=== PATIENT | male | born 1955 | race Caucasian/White ===

== ENCOUNTER 2022-05-02 10:31 | Inpatient (IN) | payer MEDICARE, OTHER ==
[~2022-05-02] VITALS: Ht 182.9 cm; Wt 81.0 kg
[2022-05-02 10:53] LABS: BASOPHILS ABSOLUTE AUTO 0.07 K/mm3 (0.00-0.23); BASOPHILS PERCENT AUTO 1 % (0-2); EOSINOPHILS ABSOLUTE AUTO 0.06 K/mm3 (0.00-0.68); EOSINOPHILS PERCENT AUTO 1 % (0-6); Hematocrit 46.2 % (37.0-53.0); Hemoglobin 15.8 g/dL (13.5-17.5); IMMATURE GRAN ABSOLUTE AUTO 0.04 K/mm3 (0.00-0.10); IMMATURE GRAN PERCENT AUTO 0 % (0-1); LYMPHOCYTES ABSOLUTE AUTO 1.74 K/mm3 (0.84-5.20); LYMPHOCYTES PERCENT AUTO 16 % (21-46); MONOCYTES ABSOLUTE AUTO 0.97 K/mm3 (0.16-1.47); MONOCYTES PERCENT AUTO 9 % (4-13); Mean Corpuscular HGB 29.7 pg (26.0-34.0); Mean Corpuscular HGB Conc 34.2 g/dL (31.5-36.5); Mean Corpuscular Volume 87 fL (80-100); Mean Platelet Volume 9.7 fL (9.1-12.4); NEUTROPHILS ABSOLUTE AUTO 8.19 K/mm3 (1.96-9.15); NEUTROPHILS PERCENT AUTO 74 % (41-73); Platelet Count 185 K/mm3 (150-400); RDW Coefficient Variation 14.2 % (11.7-14.2); RDW Standard Deviation 45.2 fL (35.1-46.3); Red Blood Cell Count 5.32 M/mm3 (4.30-5.90); White Blood Cell Count 11.07 K/mm3 (4.00-11.30)
[2022-05-02] MEDS ORDERED: WARF5 PO (11:10)
[2022-05-02] MEDS ORDERED: ASPI81CH PO (11:10)
[2022-05-02 11:25] LABS: Albumin, Blood 3.4 g/dL (3.4-5.0); Albumin/Globulin Ratio 0.9 (0.8-1.8); Bilirubin, Total 0.9 mg/dL (0.1-1.0); Bun/Creatinine Ratio 15.8 (12.0-20.0); Calcium, Blood 8.5 mg/dL (8.5-10.1); Creatinine, Blood 1.01 mg/dL (0.60-1.20); Globulin, Blood 3.7 g/dL (2.2-4.0); Potassium, Blood 4.7 mmol/L (3.5-5.5); Total Protein, Blood 7.1 g/dL (6.4-8.2)
[2022-05-02 13:45] LABS: International Normalized Ratio 1.62; Prothrombin Time Results 16.5 Sec (9.7-11.5)
[2022-05-02] MEDS ORDERED: ONDA4ODT MM (14:35)
[2022-05-02 18:49] LABS: CHOL/HDL RATIO 4.7; Cholesterol 202 mg/dL (50-200); HDL Cholesterol 43 mg/dL (>39); LDL/HDL RATIO 3.4; Low Density Lipoprotein Chol 146 mg/dL (0-110); Triglycerides 67 mg/dL (30-160); Very Low Density Lipoprot Chol 13 mg/dL (6-32)
[2022-05-02 21:39] LABS: U Amphetamine Screen Not Detected; U Barbituate Screen Not Detected; U Benzodiazapine Screen Not Detected; U Buprenorphine Screen Not Detected; U Cannabinoids Screen Not Detected; U Cocaine Screen Not Detected; U Methadone Screen Not Detected; U Methamphetamine Screen Not Detected; U Opiates Screen Not Detected; U Oxycodone Screen Not Detected; U Phencyclidine Screen Not Detected; U Propoxyphene Screen Not Detected
--- NOTE | 2022-05-03 00:48 | NUR ---
ADMIT PT TO ROOM FROM ER. IN ISOLATION. Fmily present to help with admission. admission complete. pt alert, oriented to hospital, family, and following directions. pt's family states his answers are showing improvement. pt on ra. in sr. mild htn currently. no neurological deficits except mild confusion and nonsensical words at times, all other stroke indicators negative. pt and family oriented to room. educated on lab/imaging results. pt's families questions answered. bed alarm placed. bed in low position.
[2022-05-03 04:10] LABS: International Normalized Ratio 1.63; Prothrombin Time Results 16.6 Sec (9.7-11.5)
--- NOTE | 2022-05-03 05:13 | NUR ---
SUMMARY POST ADMIT NEURO IMPROVING SIGNIFICANTLY. PT TO BATHROOM W/OUT ASSIST. JOKING WITH RN WITH LIVELIER RESPONSES. LESS GRUMPY ABOUT CARE AND BEING WOKEN UP FOR NEURO CHECKS. AND OTHERWISE STATES FEELING BETTER EVEN SINCE ADMISSION. REMAINS SR. VSS. MILD HTN REMAINS BUT STABLE. BED ALARM ON.
--- NOTE | 2022-05-03 10:27 | NUR ---
AM NOTE: PATIENT ABLE TO STATE NAME AND THIS AM. WHEN ASKING QUESTIONS SUCH WHAT TOWN ARE WE IN PATIENT REPLIES "[place], [place]". WHEN ASKING PATIENT WHO THE PRESIDENT IS PATIENT STATES "MY HAS HER ADDRESS". VERY NONSENSICAL STATEMENTS IN REPLY TO MOST QUESTIONS. WHILE AT TIMES MAKING SENSE, FOR EXAMPLE WHEN EDUCATING ON LOVENOX THIS AM, PATIENT RESPONDS "I NORMALLY TAKE A PILL FOR BLOOD THINNING", REFFERING TO HIS WARFARIN. PERRLA, NO FACIAL DROOP. BILATERAL STRENGTH IN ALL EXTREMITIES AND EQUAL MOVEMENTS. NO PHYSICAL DEFICITS NOTED. PT/OT WORKING WITH PATIENT THIS AM. SPEECH THERAPY IN ROOM AT THIS TIME. TELE SHOWING SINUS RHYTHM WITH HR 60-70'S. DENIES CHEST PAIN/PRESSURE. VITAL SIGNS STABLE WITH SLIGHTLY ELEVATED SBP IN THE 150'S. STATING SHE DOES NOT WANT PATIENT TO TAKE START A STATIN HERE. SPOKE WITH DR. HER, AND LIPITOR DC'D. ON ROOM AIR SATING ABOVE 94%. NO COUGH. LUNGS SOUNDING CLEAR. DENIES ABDOMINAL PAIN/NAUSEA ON AM ASSESSMENT, ALTHOUGH PATIENT ATE BREAKFAST AND THEN THREW IT ALL UP. IV ZOFRAN GIVEN. PATIENT CONTINUES TO DENY NAUSEA AND STATES IT JUST HIT HIM ALL AT ONCE WHEN HE THREW UP. AND SON AT BEDSIDE. DR. HER IN ROOM AT THIS TIME. CALL LIGHT IN REACH. WILL CONTINUE TO MONITOR.
--- NOTE | 2022-05-03 13:46 | NUR ---
VITAL SIGNS REMAIN STABLE. NO CHANGES TO NEURO. PATIENT PHYSICALLY REMAINS STRONG/STABLE AND NO DEFICITS ARE NOTED. PT ORDERS FOR ACTIVITY AT [place]. PATIENT INDEP IN ROOM UP TO CHAIR AND BATHROOM. COGNITIVE AND SPEECH REMAIN UNCHANGED. NONSENSICAL STATEMENTS AND VERY FLAT. PLAN FOR MRI, SCREENING FORM REVIEWED WITH AND FAXED TO IMAGING. DENIES NEEDS AT THIS TIME. WILL CONTINUE TO MONITOR.
--- NOTE | 2022-05-03 18:43 | NUR ---
SHIFT SUMMARY: SEE PREVIOUS NOTES THROUGHOUT THE DAY. NO ACUTE CHANGES. NEURO REMAINS UNCHANGED. PATIENT STILL HAVING NONSENSICAL STATEMENTS AND NOT COGNITIVELY UNDERSTANDING QUESTIONS. CONTINUES TO HAVE EQUAL ADN REACTIVE PUPILS. NO NUMBNESS/TINGLING. ALL MOVEMENTS EQUAL AND BILATERAL STRENGTH. NO DEFICITS OR DELAYS NOTED IN PHYSICAL MOVEMENTS. SPEECH REMAINS CLEAR, JUST NONSENSICAL. REPORTS PATIENT GOT ANGRY ABOUT THEIR "SLUSHIE BUS" BUISNESS AND WAS VERY CLEAR AND CONCISE WITH HIS WORDS WHEN DISCUSSING MISSING THIS PAST EVENT WITH HER. SHE SAID THAT WAS THE MOST CLEAR SHE HAD SEEN HER COGNITIVELY WHILE HERE. DR. HER DOWN TO TALK WITH FAMILY ABOUT CONCERNS AND PLAN MOVING FORWARD. Q4 NEURO CHECKS THROUGHOUT SHIFT. NO CHANGES TO TELE. ON ROOM AIR. EATING WELL. UP IND TO BATHROOM. DRINKING FLUIDS. VITAL SIGNS STABLE. DENIES PAINS. DENIES NEEDS AT THIS TIME. CALL LIGHT IN REACH. WILL CONTINUE TO MONITOR AND REPORT OFF.
--- NOTE | 2022-05-03 23:28 | NUR ---
neuro no changes in neuro assesment from on comming assesment. pt has no folcal motor deficits sahni extremities strong and equil pupils christina . when comunicationg nonsensical clear speach. pt doesnt seem aware his verbal comunication does not make sense. for example pushed call cobb appriatly when assessing needs hes kept saying wet when he wanted to turn tv off. his verbal communication doesnt match his motor.
--- NOTE | 2022-05-04 04:49 | NUR ---
PT REMAINED STABLE THROUGH SHIFT. NEUROLIGICALY PT REMAINS APHASIC AND WORD SALID THAT DOESNT CORELLATE WITH ACTIONS. FOR EXAMBLE WHEN GETTING VITALS FOR 4 AM I STATED I WAS GETTING HIS BLOOD PRESSURE HE SAID YES AND THEN PROCEDED TO PLACE HIS CPAP ON THEN WHEN FINISHED BLOOD PRESSURE HE THEN TOOK HIS CPAP OFF TRYING TO EXPLAINE TO KEEP MASK ON HE DIDNT SEEM TO UNDERSTAND AND WHEN BACK TO GETTING COMFORTABLE IN BED. AFTER THAT INTERACTION IT SEEMS HE HAS GLOBAL APHASIA AND NOT JUST EXPRESIVE. OTHER THAN HIS SPEECH HIS NEUROLOGIC STATUSE IS STABLE
[2022-05-04 04:56] LABS: International Normalized Ratio 1.85; Prothrombin Time Results 18.7 Sec (9.7-11.5)
--- NOTE | 2022-05-04 10:16 | NUR ---
AM/TRANSFER NOTE: PATIENT ALERT BUT NOT ORIENTED TO WHAT IS GOING ON. PERRLA. NO PHSYCIAL DEFICITS NOTED. BILATERAL STRENGTH AND EQUAL MOVEMENTS IN ALL EXTREMITIES. ONLY DEFICIT IS PATIENT SPEECH/COGNITION. SAYING NONSENSICAL STATEMENTS THIS AM. WHEN ASKED NAME,,PLACE,SITUATION, AND PRESIDENT. PATIENT UNABLE TO ANSWER ANY CORRECTLY AND DISCUSSING "SUGAR AND THAT HE LIVES CLOSE BY, HE IS RIGHT OVER THERE, THE ADDRESS IS HARD TO FIND, I KNOW HIS NAME IT'S MR [place]." DENIES ALL QUESTIONS CONCERNING CHEST PAIN/PRESSURE, ABDOMINAL PAIN/NAUSEA AND NUMBNESS/TINGLING. DENIES HEADACHE OR FEELING ILL. ON ROOM AIR, LUNGS SOUNDING CLEAR. TELE SHOWING SINUS RHYTHM. SBP ELEVATED THIS AM IN 160'S. TAKING PILLS WHOLE. NO EDEMA NOTED. UP IND TO BATHROOM. AND SON IN ROOM. EATING AND DRINKING WNL. TEMP FLUCTUATING UP AND DOWN. WORKED WITH SPEECH THERAPY THIS AM. UPDATE PROVIDED TO DR. HER. PATIENT WANTING TO LEAVE THIS AM AND DISCUSSING THE NEED TO SMOKE WITH HIS . NEW ORDER FOR NICOTINE PATCH AND APPLIED TO RIGHT SHOULDER. PATIENT SHOWERED SELF AND SHAVED THIS AM. REFUSING TO WEAR HOSPITAL GOWN AND SOCKS. EDUCATED ON SAFETY MEASURES AND FALL RISK ALTHOUGH PATIENT NEEDING REINFORCEMENT WITH EDUCATION. TRANSFER TO ROOM 327, REPORTED OFF TO CONCEPCIÓN LU. PATIENT TAKEN UP TO MEDICAL FLOOR VIA WHEELCHAIR WITH ALL PERSONAL BELONGINGS.
--- NOTE | 2022-05-04 10:25 | NUR ---
transfer: PT ARRIVED FROM PCU TO MEDICAL FLOOR, FAMILY AT BEDSIDE. PT ALERT, NONSENSICAL IN SPEECH. PT AMBULATORY IN ROOM AND WATCHING TV. LS CLEAR. HRR. REPORTS NO PROBLEMS OR NEEDS. WILL CONT TO MONITOR AND TREAT.
--- NOTE | 2022-05-04 13:18 | NUR ---
AGITATION: PT AGITATED AND PACING IN ROOM. STILL REMAINS NONSENSICAL BUT IS DETERMINED TO LEAVE ROOM. STARTED ON ZYPREXA PER DOCTORS ORDERS. FAMILY AT BEDSIDE TO HELP DISTRACT PATIENT. OFFERING ACTIVITIES TO HELP OCCUPY TIME. WILL MONITOR EFFECTIVENESS OF ZYPREXA.
--- NOTE | 2022-05-04 18:02 | NUR ---
PT HAS BEEN STABLE SINCE TRANSFER FROM ICU. BP SLIGHTLY ELEVATED AT TIMES. PT HAD LOW GRADE FEVER OF 100.9. CONT TO BE CONFUSED WITH NONSENSICAL SPEECH. AGITATED AT TIMES, ZYPREXA SEEMS AFFECTIVE. FAMILY AT BEDSIDE TO ORIENT AND HELP WITH CARE. TELE NSR. PT JEM DIET WELL WITHOUT SWALLOWING DIFFICULTY. NO MOBILITY DEFICITS. UP INDEP IN ROOM. VOIDING WELL. PT HAS NO COUGH OR SOB, ON RA.
--- NOTE | 2022-05-05 05:50 | NUR ---
SHIFT SUMMARY 67 YR M ADMITTED ON 05/04/22 FOR COVID ENCEPHALOPATHY. FULL CODE. PT IS IN COVID ISOLATION DESPITE BEING ASYMPTOMATIC. PT IS NOT ALERT OR ORIENTED AND HIS SPEECH IS NONSENSICLE. HE IS AN [employer] X 30 YEARS AND FAMILY STATES THAT HE WAS AT [facility] 3 DAYS AGO. THEY ARE EXTREMELY CONCERNED TO WHAT IS HAPPENING. [address] AND MRI CAME BACK CLEAR. BECAUSE OF HIS PROFESSION THE FAMILY STATES THAT HE HAS A HEIGHTENED SENSE OF AWARENESS AND IS NOT ONE TO EASILY ACCEPT HELP OR TAKE ORDERS FROM OTHERS. PT HAS BASICALLY NOT SLEPT FOR AT LEAST 24 HOURS. HE WAS GIVEN 10 MG ZYPREXA PO @ APPROX 2100 LAST NIGHT WITH LITTLE EFFECT. 5 MG MELATONIN ALSO DID NOT HELP WITH SLEEP OR AGITATION. 10 MG ZYREXA IM AT 0545 ALLOWED THE PT TO SLEEP FOR APPROX AN HOUR BUT HE WOKE UP MORE CONFUSED THAN BEFORE. HIS SON HAS STAYED AT BEDSIDE ALL NIGHT AND WAS UNABLE TO CONTROL OR REDIRECT PT SO SECURITY WAS CALLED EARLY THIS AM FOR ASSISTANCE GETTING PT BACK TO BED AND TO SAFETY. DANIEL VEST RESTRAINT ORDER WAS PUT IN. AT THIS POINT THE PT IS A DANGER TO HIMSELF AND OTHERS AND WILL NEED TO STAY RESTRAINED UNTIL HE NO LONGER POSES A THREAT. AT THIS POINT HIS AND SON ARE AT BEDSIDE AND I BELIEVE THIS HELPS PT FEEL MORE COMFORTABLE. HIS FANILY IS ANXIOUS FOR THE PT TO BE SEEN BY A DOCTOR AND THEY ARE ANXIOUS TO TALK TO A DOC. PT HAS BEEN AN RN FOR 30 YEARS.
--- NOTE | 2022-05-05 07:40 | NUR ---
ASSUMED CARE: WHILE GETTING REPORT ON PT, SON CAME OUT OF ROOM, VOICED RAISED, APPEARED AGITATED, STATED THAT HIS DAD'S MENTAL STATUS WAS GETTING WORSE AND HAS BEEN FOR 3 DAYS. STATED THAT THE DANIEL VEST WAS NOT HELPING AND THAT IF IT WASN'T FOR HIM AND HIS MOM, PT WOULD BE OUT OF BED OR PULLING OFF LINES. THIS NURSE LAID EYES ON PT AND SAW THAT PT WAS RESTLESS, AGITATED, MOVING ALL EXTREMITIES. RESUMED REPORT AND HEARD LOUD SHOUT AND SWEARING FROM SON. HE CAME OUT HOLDING HIS FINGER, STATED HE THOUGHT HIS DAD BROKE IT. PT'S CAME OUT AND SAID HE'S GETTING WORSE. CALL TO DR HER WHO STATES TO GO TO ICU ON PRECEDEX GTT AND IS AWARE THAT FAMILY IS REQUESTING 4 POINT RESTRAINTS AND DANIEL. ASKED DR HER TO ORDER A TELE CONSULT AND SHE SAID SHE WAS GOING TO CALL [facility] FOR FURTHER INPUT. STATES IN THE MEANTIME, GET HIM TO ICU FOR FURTHER SEDATION SO THAT LUMBER PUNCTURE CAN BE DONE. WENT INTO ROOM TO TELL FAMILY AND FOUND SON IN BED WITH PT WITH ARM AND LEG WRAPPED AROUND HIM. RELAYED TO FAMILY PLAN AND THEY WERE AGREEABLE TO THIS.
[2022-05-05 08:20] LABS: International Normalized Ratio 1.96; Prothrombin Time Results 19.7 Sec (9.7-11.5)
[2022-05-05 08:28] LABS: C-REACTIVE PROTEIN, EXT RANGE <0.290 mg/dL (0.000-0.300); Lactate Dehydrogenase (Ld),Bld 306 U/L (100-240)
--- NOTE | 2022-05-05 08:39 | NUR ---
TRANSFERRED PT TO ICU 15. REPORT GIVEN TO LIAM RN. PT TRANSFERRED VIA BED. WAS RELAXED DURING TRANSFER BUT STARTED TO GET AGITATED DURING SLIDING TO OTHER BED. FAMILY AWARE OF NEW BED PLACEMENT.
[2022-05-05 08:50] LABS: Source, Urine Foley catheter
[2022-05-05 08:53] LABS: Appearance, Urine Clear (Clear); Bilirubin, Urine Neg (Neg); Blood, Urine 5+ (Neg); Color, Urine Yellow (P-Yellow); Glucose Qualitative, Urine Neg (Neg); Ketones, Urine Neg (Neg); Leukocyte Esterase, Urine Neg (Neg); Nitrite, Urine Neg (Neg); Protein, Urine 1+ (Neg); Specific Gravity, Urine 1.015 (1.003-1.022); Urobilinogen, Urine NORM (Normal)
[2022-05-05 09:05] LABS: Squamous Epithelial Cells Not Seen /hpf (Few); White Blood Cells, Urine 0-2 /hpf (0-5)
[2022-05-05 09:06] LABS: Bacteria Not Seen /hpf; Renal Epithelial Rare /hpf (0-Rare); Transitional Epithelial Cells Rare /hpf (0-Rare)
--- NOTE | 2022-05-05 09:36 | NUR ---
PT ARRIVAL TO THE UNIT... PT ARRIVED TO THE UNIT FROM MEDICAL FLOOR AT APROX 0830. THE PT WAS CALM UNTIL STAFF ATTEMPTED TO MOVE HIM TO THE ICU BED, THEN HE BECAME AGITATED AND UNABLE TO FOLLOW COMMANDS. THE PT WAS PULLED OVER TO THE BED AND 4 POINT RESTRAINTS WERE PLACED ON THE PT. THE PT'S VS WERE AT THIS TIME SINUS TACH IN THE LOW 100'S SBPs WERE 150'S-160'S, RR WAS IN THE MID 40'S O2 SATS >90% L/S CLEAR T/O. NO EDEMA NOTED ON ASSESSMENT. BT PRESENT AND HYPOACTIVE, ABD SOFT AND NONTENDER TO PALPATION. THE PT HAS A PETECHIAL RASH NOTED TO HIS CHEST, UPPER ARMS AND UPPER THIGHS, PROVIDER IS AWARE. A TEMP PERDOMO WAS PLACED PER ORDERS, THE PT'S TEMP WAS 102.9 THEN INCREASED TO 103.1. A PRECEDEX DRIP WAS STARTED AT 0.4MCG/HR, THE PT RESPONDED WELL TO THIS. CURRENTLY THE PT IS RESTING WITH HIS EYES CLOSED. HIS IS IN THE ROOM, SHE WAS UPDATED ON THE PT'S CONDITION AND PLAN OF CARE. WILL CONTINUE TO MONITOR.
[2022-05-05 13:09] LABS: BASOPHILS ABSOLUTE AUTO 0.01 K/mm3 (0.00-0.23); BASOPHILS PERCENT AUTO 0 % (0-2); EOSINOPHILS PERCENT AUTO 0 % (0-6); Hematocrit 43.1 % (37.0-53.0); Hemoglobin 15.5 g/dL (13.5-17.5); IMMATURE GRAN ABSOLUTE AUTO 0.02 K/mm3 (0.00-0.10); IMMATURE GRAN PERCENT AUTO 0 % (0-1); LYMPHOCYTES PERCENT AUTO 15 % (21-46); MONOCYTES ABSOLUTE AUTO 1.41 K/mm3 (0.16-1.47); MONOCYTES PERCENT AUTO 13 % (4-13); Mean Corpuscular HGB 29.8 pg (26.0-34.0); Mean Corpuscular Volume 83 fL (80-100); Mean Platelet Volume 10.2 fL (9.1-12.4); NEUTROPHILS ABSOLUTE AUTO 7.64 K/mm3 (1.96-9.15); NEUTROPHILS PERCENT AUTO 72 % (41-73); Platelet Count 167 K/mm3 (150-400); RDW Coefficient Variation 13.4 % (11.7-14.2); RDW Standard Deviation 40.3 fL (35.1-46.3); Red Blood Cell Count 5.21 M/mm3 (4.30-5.90); White Blood Cell Count 10.68 K/mm3 (4.00-11.30)
[2022-05-05 13:20] LABS: Albumin/Globulin Ratio 1.2 (0.8-1.8); Bilirubin, Total 0.7 mg/dL (0.1-1.0); Bun/Creatinine Ratio 29.8 (12.0-20.0); Calcium, Blood 7.6 mg/dL (8.5-10.1); Creatinine, Blood 0.81 mg/dL (0.60-1.20); Globulin, Blood 2.4 g/dL (2.2-4.0); Potassium, Blood 3.3 mmol/L (3.5-5.5); Total Protein, Blood 5.4 g/dL (6.4-8.2)
--- NOTE | 2022-05-05 18:41 | NUR ---
SHIFT SUMMARY.... NO ACUTE NEGATIVE CHANGES NOTED. THE PRECEDEX DRIP IS RUNNING AT 1.0MCG/KG/HR AND PT HAS BEEN GETTING 1-2MG IV ATIVAN Q2 HRS. THE PT'S TEMP IMPROVED TO <100.00 BUT THEN STARTED TO TREND UP TO >102.0 THE PT WAS MEDICATED WITH SD TYLENOL. THE PT HAS NOT HAD A BM THIS SHIFT. THE PT'S HAS BEEN AT THE BEDSIDE MOST OF THIS SHIFT. PT'S PERDOMO IS PATENT AND DRAINING TO GRAVITY. CALL LIGHT IN REACH WILL CONTINUE TO MONITOR UNTIL REPORT IS GIVEN TO ONCOMING RN.
[2022-05-05 23:09] LABS: Influenza A, PCR NEGATIVE (NEGATIVE); Influenza B, PCR NEGATIVE (NEGATIVE); Resp Syncytial Virus, PCR NEGATIVE (NEGATIVE); SARS-Cov-2 (COVID-19) PCR, MMC NEGATIVE (NEGATIVE)
--- NOTE | 2022-05-06 00:39 | NUR ---
SHIFT ASSESSMENT/ UPDATE ASSUMED CARE OF PT @ 1900. PT SEDATED ON 1.0MCG/KG/HR OF PRECEDEX, TOLERATING WELL, VSS. SEDATION TITRATED DOWN FOR A BRIEF MOMENT BUT PT QUICKLY BEGAN MUMBLING INCOHERENTLY AND PULLING AT LINES, CORDS, AND BEDDING. PTS SON AT BEDSIDE REPORTED PT VERY STRONG AND NOT EASILY REDIRECTABLE AT THIS TIME. PT IN 4 POINT SOFT RESTRAINTS DUE TO AMS/ UNPREDICTABLE BEHAVIOR. TEMP PERDOMO CATH PATENT, CORE TEMP >100.5, ICE PACKS PLACED TO AXILLA AND GROIN, FAN POINTING TOWARD PT, WILL MEDICATE c TYELENOL WHEN APPROPRIATE. NO BM. WILL MONITOR CLOSELY.
--- NOTE | 2022-05-06 00:47 | NUR ---
COVID NEGATIVE/ FAMILY INTERACTION. PTS AND SON AT BEDSIDE SHORTLY AFTER START OF SHIFT. PTS GOVIND (NURSE FOR 30 YEARS) CALLED FOR THIS NURSE TO COME INTO THE ROOM TO TALK. GOVIND EXPLAINED HER RATIONAL FOR DOUBTING THE RAPID COVID TEST PERFORMED IN THE ED. PER GOVIND THE TEST TAKEN WAS MISREAD POSITIVE WHEN IT WAS CLEARLY NEGATIVE. GOVIND ALSO HAD BROUGHT IN A RAPID COVID OF HER OWN, SWABBED PT, AND THAT TEST CAME BACK NEGATIVE. THESE DETAILS LEAD THIS NURSE TO CALL FOR AN ORDER FOR A PCR, WHICH CAME BACK NEGATIVE FOR COVID.
[2022-05-06 04:10] LABS: International Normalized Ratio 1.23; Prothrombin Time Results 12.7 Sec (9.7-11.5)
--- NOTE | 2022-05-06 06:58 | NUR ---
SHIFT SUMMARY PT REMAINS ON PRECEDEX HE CONTINUES TO RANDOMLY SIT UP, MUMBLE, PULL AT RESTRAINTS AND TOSS IN BED. PT BECAME MORE HYPERTENSIVE THE NIGHT WENT ON, NEW ORDERS FOR PRN HYDRALYZINE. PTS FEVER INCREASING WELL, MEDICATED ONCE WITH PRN RECTAL TYLENOL. MORNING INR DOWN TO 1.23, AWAITING LP. NO OTHER ACUTE CHANGES, REPORT TO ONCOMING NURSE.
[2022-05-06 08:51] LABS: Albumin, Blood 2.7 g/dL (3.4-5.0); Anion Gap 6 mmol/L (6-16); Blood Urea Nitrogen 17 mg/dL (8-24); Bun/Creatinine Ratio 22.8 (12.0-20.0); CO2, Blood 26 mmol/L (21-32); Calcium, Blood 7.7 mg/dL (8.5-10.1); Chloride, Blood 103 mmol/L (98-108); Creatinine, Blood 0.75 mg/dL (0.60-1.20); Glomerular Filtration Rate 100 (60-); Glucose, Blood 102 mg/dL (70-99); Phosphorus, Blood 2.1 mg/dL (2.5-4.9); Potassium, Blood 3.3 mmol/L (3.5-5.5); Sodium, Blood 135 mmol/L (136-145)
--- NOTE | 2022-05-06 10:37 | NUR ---
AM NOTE... ASSUMED CARE OF PT AT 0700, THE PT IS CURRENTLY ON PRECEDEX RUNNING AT 1.1MCG/KG/HR, THE PT WINCES AND WITHDRAWS SLIGHTLY FROM PAIN, THE PT'S PUPILS ARE PIN-POINT, SCLERA ARE RED/BLOODSHOT. PT'S RR IS 22-28 O2 SATS >95% ON RA. L/S CLEAR T/O DIM IN THE BASES. BT PRESENT AND HYPOACTIVE, ABD IS SOFT TO PALPATION. THE PT'S TEMP AT THE START OF THIS SHIFT WAS >101.0 AND TRENDING DOWN. THE PT'S PERDOMO IS PATENT AND DRAINING CLEAR YELLOW URINE TO GRAVITY. THE PT'S BP IS STABLE AT THIS TIME, HE IS IN SR IN THE 50'S-60'S. WILL CONTINUE TO MONITOR.
[2022-05-06 13:59] LABS: RBC Count, CSF 2 /mm3 (0-0)
[2022-05-06 14:00] LABS: WBC Count, CSF 560 /mm3 (0-5)
[2022-05-06 14:30] LABS: Color, CSF No Color (No Color); Lymphocytes, CSF 89 % (40-80); Monocytes, CSF 11 % (15-45)
[2022-05-06 14:31] LABS: Appearance, CSF Clear (Clear)
[2022-05-06 14:56] LABS: Cryptococcus Neoformans/Gattii Not Detected (NOT DETECT); Enterovirus Not Detected (NOT DETECT); Escherichia Coli K1 Not Detected (NOT DETECT); Haemophilus Influenza Not Detected (NOT DETECT); Herpes Simplex Virus 1 Detected (NOT DETECT); Herpes Simplex Virus 2 Not Detected (NOT DETECT); Human Herpesvirus 6 Not Detected (NOT DETECT); Human Parechovirus Not Detected (NOT DETECT); Listeria Monocytogenes Not Detected (NOT DETECT); Neisseria Meningitidis Not Detected (NOT DETECT); Streptococcus Agalactiae Not Detected (NOT DETECT); Streptococcus Pneumoniae Not Detected (NOT DETECT); Varicella Zoster Virus Not Detected (NOT DETECT)
--- NOTE | 2022-05-06 18:09 | NUR ---
SHIFT SUMMARY.... THE PT HAD AN LP AT 1300 IN THE ROOM. THE PT TOLERATED THIS WELL. THE PT CONTINUES TO HAVE LABILE TEMPS FROM 98.6-102.0, THE PT'S BP HAS ALSO BEEN LABILE. THE PT CONTINUES TO BE CONFUSED AND NOT FOLLOWING ANY COMMANDS, PUPILS ARE PINPOINT STILL. PT CONTINUES ON RA. NO SEZURE LIKE ACTIVITY NOTED THIS SHIFT. THE PT HAS NOT HAD A BM THIS SHIFT. THE PT'S FAMILY WAS AT THE BEDSIDE FOR MOST OF THIS SHIFT, THEY HAVE BEEN UPDATED ON THE PT'S CONDITION AND PLAN OF CARE. PRECEDEX DRIP IS RUNNING AT 1.2MCG/KG/HR. PT CONTINUES TO NEED 4 POINT RESTRAINTS D/T CONFUSUION AND AGITATION. THE PLAN IS FOR THE PT TO HAVE ANOTHER HEAD CT AND RESTART ANTICOAGS AND HAVE AN EEG TOMORROW AROUND 1100 PER [facility] STORE CLERK. WILL CONTINUE TO MONITOR.
[2022-05-06 23:20] LABS: Vancomycin, Trough 7.7 ug/mL (5.0-10.0)
--- NOTE | 2022-05-07 01:56 | NUR ---
UPDATE ASSUMED CARE OF PT @ 1900. PT SEDATED c PRECEDEX @ 1.4. INITIALLY PT IN 4 POINT SOFT RESTRAINTS DUE TO AMS. PT TURNING SELF IN BED BUT NOT FOLLOWING COMMANDS. PT NOW OUT OF RESTRAINTS HE IS NOT PULLING AT LINES/ CORDS NOR TRYING TO GET OUT OF BED. PT OCCASIONALLY MUMBLING BUT QUICKLY BACK TO SLEEP. PT WARM TO TOUCH, TEMP VIA PERDOMO >100, PT GIVEN MT TYLENOL. TEMPERATURE COMING DOWN, CURRENTLY 99.5. TEMP PROBE PERDOMO PATENT, DRAINING LIGHT YELLOW URINE. NO BM SO FAR THIS SHIFT. PT TAKEN TO CT LAST NIGHT, AWAITING CT RESULTS AT THIS TIME IN ORDER TO ADDRESS PTS NEED FOR ANTICOAGULANTS WITH UNDERLYING CLOTTING DISORDER.
[2022-05-07 04:11] LABS: BASOPHILS ABSOLUTE AUTO 0.04 K/mm3 (0.00-0.23); BASOPHILS PERCENT AUTO 1 % (0-2); EOSINOPHILS ABSOLUTE AUTO 0.05 K/mm3 (0.00-0.68); EOSINOPHILS PERCENT AUTO 1 % (0-6); Hematocrit 42.8 % (37.0-53.0); Hemoglobin 14.9 g/dL (13.5-17.5); IMMATURE GRAN ABSOLUTE AUTO 0.03 K/mm3 (0.00-0.10); IMMATURE GRAN PERCENT AUTO 0 % (0-1); LYMPHOCYTES ABSOLUTE AUTO 2.01 K/mm3 (0.84-5.20); LYMPHOCYTES PERCENT AUTO 23 % (21-46); MONOCYTES ABSOLUTE AUTO 0.85 K/mm3 (0.16-1.47); MONOCYTES PERCENT AUTO 10 % (4-13); Mean Corpuscular HGB 29.6 pg (26.0-34.0); Mean Corpuscular HGB Conc 34.8 g/dL (31.5-36.5); Mean Corpuscular Volume 85 fL (80-100); Mean Platelet Volume 9.5 fL (9.1-12.4); NEUTROPHILS ABSOLUTE AUTO 5.84 K/mm3 (1.96-9.15); NEUTROPHILS PERCENT AUTO 66 % (41-73); Platelet Count 142 K/mm3 (150-400); RDW Standard Deviation 39.9 fL (35.1-46.3); Red Blood Cell Count 5.04 M/mm3 (4.30-5.90); White Blood Cell Count 8.82 K/mm3 (4.00-11.30)
[2022-05-07 04:31] LABS: Albumin, Blood 2.5 g/dL (3.4-5.0); Anion Gap 6 mmol/L (6-16); Blood Urea Nitrogen 12 mg/dL (8-24); Bun/Creatinine Ratio 12.5 (12.0-20.0); CO2, Blood 28 mmol/L (21-32); Calcium, Blood 7.7 mg/dL (8.5-10.1); Chloride, Blood 103 mmol/L (98-108); Creatinine, Blood 0.96 mg/dL (0.60-1.20); Glomerular Filtration Rate 88 (60-); Glucose, Blood 121 mg/dL (70-99); Magnesium, Blood 2.1 mg/dL (1.6-2.4); Phosphorus, Blood 2.3 mg/dL (2.5-4.9); Potassium, Blood 3.2 mmol/L (3.5-5.5); Sodium, Blood 137 mmol/L (136-145)
--- NOTE | 2022-05-07 06:50 | NUR ---
SHIFT SUMMARY PT REMAINS ON PRECEDEX, TITRATED DOWN TO 1.2 DUE TO BRADYCARDIA. NO OBVIOUS NEURO CHANGES, PUPILS REMAIN PINPOINT AND SLOW TO RESPOND. PT MOVING ALL EXTREMITIES WELL MOVING SELF IN BED BUT WILL NOT FOLLOW COMMANDS. OCCASIONALLY PT WILL MUMBLE INCOHERENTLY THEN QUICKLY FALL BACK ASLEEP. TEMPERATURE SLOWLY DECREASED T/O NIGHT, PT NOW AFEBRILE @ 98.7. BP STABLE. CT RESULTS RELAYED TO HOSPITALIST, RECOMMEND REPEAT MRI. AWAITING EEG THIS MORNING. REPORT GIVEN TO ONCOMING NURSE.
[2022-05-07 07:10] LABS: COMPLEMENT C3, SERUM 112 mg/dL (82-167)
[2022-05-07 08:34] LABS: International Normalized Ratio 1.06; Prothrombin Time Results 11.1 Sec (9.7-11.5)
--- NOTE | 2022-05-07 09:25 | NUR ---
ASSUMED CARE OF PATIENT AT 0700, PT HAS BEEN SLEEPING. HE IS UNRESTRAINED, WILL PULL HIS COVERS UP AROUND HIS NECK AND MUMBLE WHILE ATTEMPTING BLOOD DRAWS AND IV'S. HE IS NOT ABLE TO ANSWER APPROPRIATELY OR RESPOND TO ANY COMMANDS. ORAL MEDS NOT GIVEN. PRECEDEX @ 1.0MCG/KG AND NS @ 50ML/HR. K+PHOS INFUSING PER ORDERS, ANTIBIOTICS AND ANTIVIRALS PER DEC. EEG EXPECTED THIS AM.
--- NOTE | 2022-05-07 14:49 | NUR ---
PT HAD THE EEG, PRECEDEX IS OFF. PT IS DOING VERY WELL WITH REMAINING IN THE BED. HE TURNS FROM SIDE TO SIDE. CALLED VIA PHONE TO LET HER KNOW THAT THE EEG IS COMPLETE.
--- NOTE | 2022-05-07 15:18 | NUR ---
PT CONTINUES WITHOUT RESTRAINTS OR PRECEDEX, NAPPING ON HIS SIDE. AT HIS SIDE. VITALS STABLE, BP IMPROVED. TEMP REMAINS ELEV. 101.8, WAS GIVEN TYLENOL SUPP WITH NO CHANGE.
--- NOTE | 2022-05-07 17:44 | NUR ---
PT REMAINS OFF PRECEDEX, HE CONTINUES TO TOSS AND TURN. HE IS FEBRILE, TYLENOL SUPP DIDN'T CHANGE THE TEMP, WILL GIVE AGAIN WHEN ABLE. WEARING THE SHEET ONLY CATHETER WITH >2L OF U/O. IV FLUIDS VIA ANTIBIOTICS AND ANTIVIRALS TOLERATED WELL. ATTEMPTS ICE CHIPS, FED BY . UNABLE TO FIGURE OUT HOW TO CHEW HIS DINNER. HE IS ABLE TO SAY WORDS CLEARLY, NOT IN RESPONSE TO COMMAND OR ORIENTED. CONTINUE TO WATCH AND TREAT.
[2022-05-07 18:10] LABS: ANTI-CENTROMERE B ANTIBODIES <0.2 AI (0.0-0.9); ANTI-DNA (DS) AB QN 1 IU/mL (0-9); ANTI-JO-1 <0.2 AI (0.0-0.9); ANTICHROMATIN ANTIBODIES <0.2 AI (0.0-0.9); ANTIRIBOSOMAL P ANTIBODIES <0.2 AI (0.0-0.9); ANTISCLERODERMA-70 ANTIBODIES <0.2 AI (0.0-0.9); RNP ANTIBODIES <0.2 AI (0.0-0.9); SJOGREN'S ANTI-SS-A <0.2 AI (0.0-0.9); SJOGREN'S ANTI-SS-B <0.2 AI (0.0-0.9); SMITH ANTIBODIES <0.2 AI (0.0-0.9); SMITH/RNP ANTIBODIES <0.2 AI (0.0-0.9)
--- NOTE | 2022-05-07 18:18 | NUR ---
UPDATE GIVEN TO , WILL CONTINUE TO MONITOR. SHE DID SAY WE COULD DO THE TYLENOL Q4H RATHER THAN Q6. PT CONTINUES TO SHIVER, REMAINS WITH SHEET ONLY. IS BECOMING MORE RESTLESS, MAY RESTART PRECEDEX IF NECESSARY.
--- NOTE | 2022-05-07 20:58 | NUR ---
ASSUMPTION OF CARE TOOK OVER CARE FOR THIS PT AT 1900 PT WAS RESTING IN BED PRECIDEX WAS RESTARTED PT SEEMS COMFORTABLE.TEMP IS 103 TYLENOL WAS GIVEN AT 1800. PT INTERACTED VERY LITTLE JUST GRUMBLED WHEN ASKING QUESTIONS. SPOKE TO AT LENGTH ABOUT PTS COURSE OF CARE.
[2022-05-07 22:11] LABS: ANTI-DSDNA ANTIBODIES 2 IU/mL (0-9); RNP ANTIBODIES <0.2 AI (0.0-0.9); SJOGREN'S ANTI-SS-A <0.2 AI (0.0-0.9); SJOGREN'S ANTI-SS-B <0.2 AI (0.0-0.9); SMITH ANTIBODIES <0.2 AI (0.0-0.9)
[2022-05-07 23:28] LABS: Vancomycin, Trough 9.6 ug/mL (5.0-10.0)
[2022-05-08 04:42] LABS: Albumin, Blood 2.6 g/dL (3.4-5.0); Anion Gap 4 mmol/L (6-16); Blood Urea Nitrogen 9 mg/dL (8-24); Bun/Creatinine Ratio 9.9 (12.0-20.0); CO2, Blood 30 mmol/L (21-32); Calcium, Blood 7.9 mg/dL (8.5-10.1); Chloride, Blood 104 mmol/L (98-108); Creatinine, Blood 0.91 mg/dL (0.60-1.20); Glomerular Filtration Rate 94 (60-); Glucose, Blood 107 mg/dL (70-99); Phosphorus, Blood 2.8 mg/dL (2.5-4.9); Potassium, Blood 3.2 mmol/L (3.5-5.5); Sodium, Blood 138 mmol/L (136-145)
--- NOTE | 2022-05-08 05:45 | NUR ---
SHIFT SUMMARY PT HAS BE SOMULENT THOUGH OUT SHIFT VERY LITTLE VERBALIZATION VERY GRUMBLED IF HE DOES SPEAKE. HIS TEMP WAS 103 (NEURO TEMP??) AT START OF SHIFT TYLENOL HAD ALREADY BEEM GIVEN. PRECIDEX WAS AT .4 I INCREASED TO .6 IN HOPES IT WOULD HELP WITH RIGERS AFTER INCREASE TEMPURATURE SLOW DECREASE ONE OTHER DOSE OF TYLENOL WAS GIVEN AFTER 6 HRS AND TEMP IS NOW 100.5. HR IS 60-80 SATURATIONS >95 ON ROOM AIR BLOOD PRESSER HAS NORMALIZED ON PRECIDEX DRIP AND IS NOW LOW 100/60S/RR IS 21. PT REMAINS CONFUSED AND I HAVE NOT EXPRENCED ANY INPROVEMENT IN NEUROLOGICAL/ APHASIA. WILL CONTINUE TO MONITOR AND REPORT OFF TO ONCOMING SHIFT
[2022-05-08 11:11] LABS: LYME TOTAL ANTIBODY CIA Negative (Negative)
--- NOTE | 2022-05-08 11:32 | NUR ---
PT HAS BEEN SLEEPING T/O THE MORNING, TURNING FROM SIDE TO SIDE. NOW BY HIS SIDE. TEMP CONTINUES 100.9, HEART RATE 70S, SATS 99%.
--- NOTE | 2022-05-08 12:38 | NUR ---
PT HAS BEEN TAKING IN MAGIC CUP, THE PROTEIN ICE CREAM WITHOUT INCIDENT. HE WAS GIVEN ORAL TYLENOL LIQUID FOR HIS TEMP OF 101.2. CONTINUES WITH PRECEDEX AT 0.6MCG/KG, IS OPENING HIS MOUTH ON COMMAND FOR SPOONFUL OF ICE CREAM. HE SAID, "HELLO" TO BILLIE WHEN HIS INTRODUCED HIM.
--- NOTE | 2022-05-08 15:33 | NUR ---
Spiritual Care Visit. Pt. is soundly sleeping. Spouse is present and welcomes my visit. Facilitate a life review with the spouse. Establish rapport. With the 's permission prayed over the Pt. Spouse verbalized gratitude for the spiritual care visit.
--- NOTE | 2022-05-08 17:05 | NUR ---
PT IS STARTING TO RESPOND TO VERBAL COMMANDS, ie CAN YOU STRAIGHTEN YOUR ARM FOR ME? CAN I LOOK AT YOUR IV? BUT WHEN HE IS ASKED, "WHERE ARE YOU?" HE RESPONDS WITH "SOMEWHERE". DO YOU KNOW THE PRESIDENT? "NOPE" DO YOU CARE WHO THE PRESIDENT IS? "NOPE" PRESENT FOR HIS RESPONSES. PRECEDEX DOWN TO 0.3 MCG/KG, PT TOLERATING WELL.
--- NOTE | 2022-05-08 18:19 | NUR ---
PT RESTING ON HIS BACK, HE CONTINUES TO BE ABLE TO REPOSITION HIMSELF IN BED. IS APPROPRIATE, NOT TRYING TO GET OUT OF BED, PRECEDEX CONTINUES AT 0.3MCG/KG IV ANTIVIRALS AND ANTIBIOTICS CONTINUE. RIGHT ARM HAS BEEN RED AND INFLAMMED ALL DAY, HAVE NOT USED THE PG IN THAT SIDE THIS SHIFT. LEFT UA PG WORKS WELL. PT HAD A BATH TODAY, TOOK IN SOME MAGIC SHERBET X 2. HAS BEEN IN AND OUT MOST OF THE DAY, SHE HAS BEEN WAITING FOR A VISIT WITH THE PATIENT ADVOCATE. HAPPY WITH HIS IMPROVEMENT.
--- NOTE | 2022-05-08 19:51 | NUR ---
ASSUMTION OF CARE PT COMFORTABLY LYING IN BED AFTER HIS DINNER AT BED SIDE. RECIEVED REPORT FROM SHELLY LU. PT IS SOMEWHAT MORE VERBALE AND INTERACTIVE FOR INTERDUCTION MOSTLY YES NO RESPONCE. PT STILL SPINKING TEMPS TYLENOL WAS JUST GIVEN WILL MONITOR FOR EFFECTIVENESS
[2022-05-08 23:10] LABS: Vancomycin, Trough 20.5 ug/mL (5.0-10.0)
[2022-05-09 04:03] LABS: BASOPHILS ABSOLUTE AUTO 0.06 K/mm3 (0.00-0.23); BASOPHILS PERCENT AUTO 1 % (0-2); EOSINOPHILS ABSOLUTE AUTO 0.13 K/mm3 (0.00-0.68); EOSINOPHILS PERCENT AUTO 1 % (0-6); Hematocrit 36.5 % (37.0-53.0); Hemoglobin 12.6 g/dL (13.5-17.5); IMMATURE GRAN ABSOLUTE AUTO 0.06 K/mm3 (0.00-0.10); IMMATURE GRAN PERCENT AUTO 1 % (0-1); LYMPHOCYTES ABSOLUTE AUTO 1.79 K/mm3 (0.84-5.20); LYMPHOCYTES PERCENT AUTO 20 % (21-46); MONOCYTES ABSOLUTE AUTO 0.82 K/mm3 (0.16-1.47); MONOCYTES PERCENT AUTO 9 % (4-13); Mean Corpuscular HGB 29.5 pg (26.0-34.0); Mean Corpuscular HGB Conc 34.5 g/dL (31.5-36.5); Mean Corpuscular Volume 86 fL (80-100); Mean Platelet Volume 9.5 fL (9.1-12.4); NEUTROPHILS ABSOLUTE AUTO 6.14 K/mm3 (1.96-9.15); NEUTROPHILS PERCENT AUTO 68 % (41-73); Platelet Count 160 K/mm3 (150-400); RDW Coefficient Variation 13.4 % (11.7-14.2); RDW Standard Deviation 41.8 fL (35.1-46.3); Red Blood Cell Count 4.27 M/mm3 (4.30-5.90)
[2022-05-09 04:19] LABS: Albumin, Blood 2.4 g/dL (3.4-5.0); Anion Gap 5 mmol/L (6-16); Blood Urea Nitrogen 10 mg/dL (8-24); Bun/Creatinine Ratio 10.6 (12.0-20.0); CO2, Blood 28 mmol/L (21-32); Chloride, Blood 106 mmol/L (98-108); Creatinine, Blood 0.94 mg/dL (0.60-1.20); Glomerular Filtration Rate 90 (60-); Glucose, Blood 147 mg/dL (70-99); Potassium, Blood 3.3 mmol/L (3.5-5.5); Sodium, Blood 139 mmol/L (136-145)
--- NOTE | 2022-05-09 05:18 | NUR ---
SHIFT SUMMARY NO OVER NIGHT EVENTS PT REMAINS NEUROLOGICAL IMPARED SPEECH IS STILL GARBLED GLOBAL APHASIA BUT PT CONTUIES TO INCREASE VERBAL INTERACTION. PT PRECIDEX REMAINED .3 PT IS MUCH LESS RESTLESS TONIGHT PLACED ON CPAP FOR SHAY HX AND PT HAS RESTED COMFORTABLY FOR DURATION OF SHIFT. TMAX 102.1 TYLENOL GIVEN WITH SOME IMPROVENT BUT CONTINES TO BE FEBRILE. ALL OTHER VITAL SIGNS HAVE REMAINED WITHIN NORMAL LIMITS. WILL CONTINUE TO MONITOR FOR REMAINTER OF SHIFT AND WILL REPORT OFF TO ON COMING RN
--- NOTE | 2022-05-09 08:00 | NUR ---
ASSUMED CARE ASSUMED CARE OF PT AT 0700. PT IS ALERT AND AWAKE, BUT CONFUSED AND WITH NONSENSICAL SPEECH. PT ANSWERS SOME QUESTIONS APPROPRIATELY. PT ABLE TO REPOSITION SELF IN BED FOR COMFORT. VITAL SIGNS STABLE. PRECEDEX INFUSING AT 0.5 MCG/KG/HR AND NS 50 ML/HR. PERDOMO IN PLACE WITH YELLOW URINE OUTPUT NOTED. PT SPOUSE ARRIVED TO ROOM AROUND 0800. PT SPOUSE UPDATED TO CURRENT PT CONDITION AND PLAN OF CARE. EXTENSIVE CONVERSATION ABOUT PT HOSPITAL STAY INITIATED BY PT SPOUSE. ALL QUESTIONS ANSWERED. PT SPOUSE STATES SHE IS AWAITING DISCUSSION WITH PT ADVOCATE THIS SHIFT. ALL PT AND SPOUSE STATE ALL NEEDS HAVE BEEN MET AT THIS TIME. WILL CONTINUE TO MONITOR.
--- NOTE | 2022-05-09 13:13 | NUR ---
Spiritual Care Visit. Pt. is awake, sitting up in bed, and welcomes my visit. It is difficult to understand the Pt. when he speaks as the words sound like gibberish, but the Pt. does display evidence of understanding when I would speak. Given that the Pt. has a difficult time communicating, this hog feeder will check on him at a later time.
--- NOTE | 2022-05-09 17:49 | NUR ---
SHIFT SUMMARY NO ACUTE CHANGES THIS SHIFT. PT HAS BEEN AWAKE FOR MOST OF THE SHIFT. PT IS CALM AND COOPERATIVE. SPEECH IS CLEAR, BUT PT REMAINS CONFUSED AND NONSENSICAL. PT ABLE TO ANSWER SOME QUESTIONS APPROPRIATELY. PT REMAINS LIGHTLY SEDATED WITH PRECEDEX AT 0.5 MCG/KG/MIN. NS INFUSING AT 50 ML/HR. PERDOMO TEMP PROBE REMAINS IN PLACE WITH CLEAR YELLOW URINE OUTPUT NOTED. VITAL SIGNS HAVE REAMINED STABLE. PT REPOSITIONING SELF IN BED INDEPENDENTLY. PT WITH INCREASING APPETITE TODAY, ATE MOST OF EACH MEAL TRAY. PT SPOUSE AT BEDSIDE AT THIS TIME. WILL CONTINUE TO MONITOR AND REPORT OFF TO ONCOMING RN.
--- NOTE | 2022-05-09 19:30 | NUR ---
ASSUMED CARE AT 1900 PATIENT IS ALERT AND ORIENTED TO SELF, , AND FOLLOWING DIRECTIONS. SPEECH NONSENSICLE, PATIENT BECOMES EASILY AGITATED TRYING TO LEAVE. PRECEDEX INF O.5 MCG/KG/HR. PATIENT MOVES ALL EXTREMITIES AND ABLE TO REPOSITION SELF. 02 SATS 98% ON RA, LS CLEAR. HR SR 70s, BP STABLE. TEMP PERDOMO PATENT AND DRAINING TO GRAVITY, CLEAR YELLOW URINE. CALL LIGHT IN REACH. SEE SHIFT ASSESSMENT FOR MORE INFORMATION.
[2022-05-10 04:18] LABS: Albumin, Blood 2.3 g/dL (3.4-5.0); Anion Gap 7 mmol/L (6-16); Blood Urea Nitrogen 9 mg/dL (8-24); Bun/Creatinine Ratio 9.2 (12.0-20.0); CO2, Blood 27 mmol/L (21-32); Calcium, Blood 7.9 mg/dL (8.5-10.1); Chloride, Blood 107 mmol/L (98-108); Creatinine, Blood 0.97 mg/dL (0.60-1.20); Glomerular Filtration Rate 87 (60-); Glucose, Blood 119 mg/dL (70-99); Potassium, Blood 3.6 mmol/L (3.5-5.5); Sodium, Blood 141 mmol/L (136-145)
[2022-05-10 04:19] LABS: Vancomycin, Trough 14.3 ug/mL (5.0-10.0)
--- NOTE | 2022-05-10 06:30 | NUR ---
SHIFT SUMMARY PATIENT IS ALERT AND ORIENTED TO SELF, FAMILY AND FOLLOWING COMMANDS, SPEECH REMAINS NONSENSICLE AND PATIENT BECOMES VERY AGITATED AND ANXIOUS AT TIMES. PRECEDEX REMAINS INFUSING. 02 SATS 96% ON RA. HR SB 50s-60s. BP STABLE. PERDOMO PATENT AND DRAINING TO GRAVITY. PATIENT ABLE TO REPOSITION SELF IN BED. BED ALARM ON. CALL LIGHT IN REACH.
--- NOTE | 2022-05-10 07:27 | NUR ---
ASSUMPTION OF CARE RECEIVED REPORT FROM SOLOMON LU, ASSUMED CARE OF PATIENT. PATIENT IN BED WITH EYES CLOSED, EASILY AWOKE. CALM AND COOPERATIVE, FOLLOWED COMMANDS. PRECEDEX INFUSING AT 0.5MCG/KG. REPOSITIONING SELF INDEPENDENTLY IN BED. VITALS STABLE, ON ROOM AIR. PERDOMO PATENT AND DRAINING CLEAR, YELLOW URINE. WILL REVIEW ORDERS AND TREAT PRESCRIBED.
[2022-05-10 15:03] LABS: International Normalized Ratio 1.09; Prothrombin Time Results 11.4 Sec (9.7-11.5)
--- NOTE | 2022-05-10 17:11 | NUR ---
SHIFT SUMMARY NEURO: PATIENT ALERT, FOLLOWS COMMANDS. ATTEMPTS TO ANSWER QUESTIONS, CLEAR SPEECH BUT WORD SALAD REMAINS. PATIENT ATTEMPTS TO SAY 'S NAME AND SAYS "NARFARO", SAYS "OKAY" A RESPONSE TO QUESTIONS. STANDBY ASSIST TO CHAIR FOR MEALS, WHEELCHAIR ASSIST TO RADIOLOGY FOR CT. PATIENT WITH STEADY GAIT. PRECEDEX STOPPED CHARTED. FEBRILE WITH TMAX 101.5, TYLENOL GIVEN. TEMP CURRENTLY 100.9 RESP: CLEAR LUNGS, ON ROOM AIR. NO S/S OF DISTRESS CARDIAC: STABLE HEART RATE AND BLOOD PRESSURES. GI: TOLERATING PO INTAKE WELL. ADDRESSED NEED FOR BOWEL CARE WITH DR. HER, NEW ORDERS RECEIVED. : PERDOMO PATENT AND DRAINING CLEAR, YELLOW OUTPUT. SKIN: REMAINS INTACT WITH SCATTERED BRUISING T/OUT. PATIENT REPOSITIONS SELF IN BED INDEPENDENTLY. HEAD CT REPEATED, RESULTS VERIFIED WITH DR HER PER PHARMACY AND COUMADIN RESTARTED. LOVENOX GIVEN CHARTED TO BRIDGE PATIENT TO THERAPEUTIC BLOOD LEVEL. WILL CONTINUE TO MONITOR AND REPORT TO ONCOMING RN.
--- NOTE | 2022-05-10 23:12 | NUR ---
PT. BECAME CONFUSED AND AGITATED AROUND 2029 AND TRIED TO STAND UP. PT. WAS OUT OF BED WITH NURSE AT BEDSIDE BECOMING INCREASINGLY AGITATED AND TRYING TO LEAVE. WAS CALLED AND WAIFE AND SON CAME UP TO ROOM TO HELP CALM PATIENT. IV ATIVAN WAS GIVEN BUT WAS NOT EFFECTIVE, SO PRECEDEX WAS RESTARTED. STARTED AT 0.3 AND PT. HAS BEEN CALM SINCE. FAMILY LEFT AROUND 2300 AND PT.'S CPAP WAS APPLIED AND NOW PT. IS SLEEPING COMFORTABLY.
[2022-05-11 04:55] LABS: International Normalized Ratio 1.12; Prothrombin Time Results 11.7 Sec (9.7-11.5)
--- NOTE | 2022-05-11 05:21 | NUR ---
SHIFT SUMMARY: PT. QUITE AGITATED UPON FIRST ASSESSMENT, COULD NOT ANSWER ORIENTATION QUESTIONS, AND STARTED TO TRY GETTING UP SO HE COULD LEAVE. FAMILY CALLED AND CAME TO BEDSIDE, ATIVAN GIVEN BUT WAS NOT EFFECTIVE, SO PRECEDEX WAS STARTED BACK. BP AND HR HAVE REMAINED STABLE ALL NIGHT AND PT. IS STILL SATTING ABOVE 94% ON RA, BUT IS CURRENTLY WEARING CPAP FOR SLEEP. PT. IS COMFORTABLE ON 0.2 OF PRECEDEX AND IS STILL EASILY AROUSABLE. HE IS RESTING COMFORTABLY AT THIS TIME.
--- NOTE | 2022-05-11 08:10 | NUR ---
ASSUMPTION OF CARE RECEIVED REPORT FROM NOC SHIFT RN AT 0705, ASSUMED CARE OF PATIENT. PATIENT IN BED ON RIGHT SIDE WITH EYES CLOSED. CPAP IN PLACE. PRECEDEX INFUSING AT 0.2MCG/KG, PATIENT AROUSED TO VERBAL STIMULI, OPENED EYES BUT DID NOT STAY AWAKE. PRECEDEX TURNED OFF TO STANDBY AT 0715. VITALS STABLE WITH HEART RATE 50-60'S. ATTEMPTED TO AROUSE PATIENT TO SIT UP IN CHAIR, PATIENT DID NOT FOLLOW COMMANDS OR VERBALLY RESPOND TO QUESTIONS. MUMBLED INCOHERENT WORDS AND CLOSED EYES. ORDERS REVIEWED, WILL TREAT PRESCRIBED.
--- NOTE | 2022-05-11 08:50 | NUR ---
NEURO PATIENT AWAKE IN BED, READJUSTING CPAP TO SCRATCH FACE. OFFERED BREAKFAST TRAY, PATIENT STATED "I'M NOT HUNGRY", CLOSED EYES AND BEGAN RESTING AGAIN. VITALS REMAIN STABLE. PRECEDEX REMAINS ON STANDBY.
--- NOTE | 2022-05-11 16:21 | NUR ---
AGITATION PATIENT STOOD UP OUT OF BED, SAID HE WANTED TO GO HOME. APPEARED AGITATED, STARTED STATING WORDS THAT DID NOT MAKE SENSE. MUMBLED AT TIMES, DID NOT ANSWER QUESTIONS APPROPRIATELY. TWO RN ASSIST TO TRY TO GET HIM TO SIT DOWN, UNABLE TO VERBALLY DIRECT. PATIENT'S AGITATION INCREASED, WALKED AROUND ROOM, ATIVAN WAS GIVEN CHARTED. RN ASKED PATIENT TO THEN SIT DOWN ON THE BED, PATIENT FOLLOWED COMMANDS THEN RESPONDED "DO YOU WANT ME TO LAY DOWN?". PATIENT IN BED AT THIS TIME, CALM WITH CALL LIGHT IN REACH AND BED ALARM ON.
--- NOTE | 2022-05-11 17:54 | NUR ---
SHIFT SUMMARY PATIENT CONTINUES TO BE ALERT, UNABLE TO COMMUNICATE CLEAR WORDS. EASILY FRUSTRATED AND AGITATED WITH COMMUNICATION AND OFTEN IS ABLE TO SAY "I JUST WANT TO GO HOME". UP TO CHAIR, PHYSICAL THERAPY EVALUATED AND AMBULATED PATIENT. VITALS STABLE ON ROOM AIR. TOLERATING PO INTAKE WITH TWO BOWEL MOVEMENTS NOTED. PERDOMO CATHETER D/C'D CHARTED, PATIENT WAS CONTINENT OF URINE AFTER PERDOMO REMOVAL. EPISODE OF AGITATION THIS AFTERNOON WITH ATIVAN GIVEN. PATIENT CURRENTLY REMAINS CALM, IN BED. WILL REPORT TO ONCOMING RN.
[2022-05-12 04:54] LABS: International Normalized Ratio 1.3; Prothrombin Time Results 13.4 Sec (9.7-11.5)
--- NOTE | 2022-05-12 05:56 | NUR ---
SHIFT SUMMARY: UPON FIRST ASSESSMENT PT. WAS VERY AGITATED AND TRYING TO GET UP TO LEAVE. PRN ATIVAN WAS GIVEN AND PT.S NIGHTLY MEDS WERE GIVEN WELL. PT. NOW SEEMS TO ONLY IMPULSIVELY GETS OUT OF BED TO URINATE AT THE BEDSIDE. BP, HR, AND 02 HAS BEEN WNL ALL NIGHT. PT. STILL NOT MAKING SENSE OR UNDERSTANDING MUCH OF WHAT HE IS BEING TOLD AND BEING VISIBLY UPSET WHEN HE DOES NOT UNDERSTAND. OTHERWISE PT. IS INTACT NEUROLOGICALLY. PT. SLEEPING WITH CPAP AND IS RESTING COMFORTABLY AT THIS TIME.
--- NOTE | 2022-05-12 07:23 | NUR ---
ASSUMPTION OF CARE RECEIVED REPORT FROM CASH LU, ASSUMED CARE OF PATIENT. PATIENT IN BED WITH CPAP ON, IMPULSIVELY REMOVED CPAP AND BEGAN STANDING AT THE SIDE OF THE BED. BED ALARM ON AND ALARMING. RN TO ROOM, PATIENT WALKING TOWARDS DOOR SAYING HE HAD TO GO TO THE BATHROOM. RN REMINDED PATIENT THE TOILET WAS IN A DIFFERENT DIRECTION. PATIENT STOPPED, TURNED AROUND AND WALKED TO TOILET. URINATED WITHOUT DIFFICULTY, INDEPENDENTLY PLACED SELF BACK INTO BED WITH RN STANDING BESIDE HIM. BED ALARM PLACED ON, CALL LIGHT IS WITHIN REACH. WILL REVIEW ORDERS AND TREAT PRESCRIBED.
--- NOTE | 2022-05-12 18:28 | NUR ---
SHIFT SUMMARY PATIENT ALERT, FOLLOWS COMMANDS. DOES NOT ANSWER QUESTIONS. MOSTLY SAYS "OKAY, THAT'S FINE, AND THANK YOU". VITALS STABLE ON ROOM AIR. PERIODS OF RESTING AND HARD TO AROUSE. FAMILY STATED AT BASELINE PATIENT CAN SLEEP DEEPLY AND BE HARD TO AROUSE. PATIENT SPONTANEOUSLY AWAKENS AND AMBULATES TO TOILET. MINIMAL APPETITE. FAMILY TO BEDSIDE. CALL LIGHT IN REACH, BED ALARM ON. WILL REPORT TO ONCOMING RN.
--- NOTE | 2022-05-12 22:34 | NUR ---
PT. FEELING VERY ANXIOUS AND WANTING TO GET OUT OF BED TO GO HOME. I AMBULATED PT. AROUND THE UNIT, THEN HE SAT IN THE CHAIR WHILE EATING A SANDWHICH AND WATCHED SOME TV FOR ABOUT 30 MINUTES. MELATONIN WAS GIVEN FOR REST AND PT. WAS BURPING AND SAYING HE HAD "YUCKY" IN HIS MOUTH, SO PRN ZOFRAN WAS GIVEN WELL. PT. ASKED TO LAY DOWN AND IS CURRENTLY RESTING IN BED AT THIS TIME.
[2022-05-13 04:55] LABS: International Normalized Ratio 1.93; Prothrombin Time Results 19.4 Sec (9.7-11.5)
--- NOTE | 2022-05-13 05:50 | NUR ---
SHIFT SUMMARY: PT. WAS ANXIOUS AND GETTING UP AT BEGINNING OF SHIFT BUT AFTER AMBULATING AROUND THE UNIT WITH WALKER ASSISTED BY NURSE AND TECH, PT. SETTLED DOWN. PT. THEN ATE HALF A SANDWICH, TOOK MELATONIN, AND LAID BACK DOWN. HE HAS ONLY BEEN UP ONCE SINCE TO URINATE. VS REMAINED WNL THROUGHOUT THE NIGHT AND PT. IS MAKING MORE SENSE AND ABLE TO SPEAK IN FULL SENTENCES ALTHOUGH STILL CONFUSED. PT.'S FAMILY TO RETURN IN AM. PT. RESTING COMFORTABLY IN BED AT THIS TIME.
--- NOTE | 2022-05-13 08:53 | NUR ---
ASSUMED CARE REPORT FROM LUIZ LU AT 0700. PT RESTING IN BED. WAKES c VERBAL STIMULI. FOLLOWS OCCASIONAL COMMANDS. DOES NOT RESPOND APPROPRIATELY TO QUESTIONS. SPEAKS IN NON SENSICAL SENTANCES. MAKES EYE CONTACT. GETS IRRITABLE c REPEATED QUESTIONS. AMB IN DEPT c OT c WALKER. PT MOVES IN ROOM INDEPENDENTLY, TAB ALARM FOR SAFETY. WILL CONTINUE TO MONITOR.
--- NOTE | 2022-05-13 14:59 | NUR ---
SHIFT SUMMARY/TRANSFER TO MEDICAL FLOOR NO ACUTE CHANGES THIS SHIFT. NEURO UNCHANGED, FOLLOWS SIMPLE COMMANDS. ANSWERS QUESTIONS INAPPROPRIATELY. AMB INDEPENDENTLY. WORKED c PT/OT/SPEECH. TOLERATED MEALS WELL. REPORT TO EGLA LU
--- NOTE | 2022-05-13 17:23 | NUR ---
PT ARRIVED TO THE MEDICAL FLOOR FROM THE ICU. PLEASANT MOSTLY NON VERBAL ANSWERS SOME YES/NO QUESTIONS AN SHRUGGES HIS SHOULDERS IN NOT ANBLE TO STATE HIS BIRTHDAY OR VERBALIZE HIS FEELINGS AT THIS TIME. PT WAS ORIENTED TO THE ROOM CALL SYSTEM AND LAYOUT PTS IS AT THE BEDSIDE. BED ALARM INSPECTOR MULTIFOCAL LENS LIGHT IN REACH. THE PT APPEARS TO BE BREATHING EASILY ON RA AT THIS TIME
--- NOTE | 2022-05-14 04:47 | NUR ---
SHIFT SUMMARY A/OX2, ABLE TO FOLLOW SOME SIMPLE COMMANDS. COMMUNICATES WITH ONE WORD/SHORT ANSWERS. SBA TO BATHROOM, PT APPEARS QUITE STEADY ON HIS FEET BUT IS IMPULSIVE. VSS, NO ACUTE CHANGES AT THIS TIME. BED IN LOWEST POSITION WITH CALL LIGHT IN REACH. WILL CONTINUE TO MONITOR AND REPORT TO ONCOMING RN.
[2022-05-14 04:52] LABS: International Normalized Ratio 2.67; Prothrombin Time Results 26.3 Sec (9.7-11.5)
--- NOTE | 2022-05-14 13:22 | NUR ---
PT PULLED HIS NEWLY PLACED PICC LINE AND AT THIS TIME IS REFUSING TO HAVE IT REPLACED
--- NOTE | 2022-05-14 19:24 | NUR ---
PT ALERT. ORIENTED TO SELF FAMILY AND SUROUNDINGS. THIS AM PT WAS UP TO THE BATHROOM ABLE TO STATE HIS NEEDS. SHORTLY AFTER AGAIN HAD SPEECH APHASIA. PT APPEARS TO BE BREATHING EASILY ON RA. THE PT PULLED OUT HIS IV THIS AM. A PICK LINE WAS INSERTED AND SHORTLY AFTER THE PT PULLED THAT OUT ALSO. PT NOW HAS A PERIPHERAL IV TO RECIEVE ANTI BIOTIC. THE PT IS AT THE BEDSIDE. THE PT APPEARS TO BE BREATHING EASILY ON RA. THE PT IS STEADY ON HIS FEET WHEN UP. CALL LIGHT IN REACH. BED ALARM ON. PTS IS SPENDING THE NIGHT TONIGHT
--- NOTE | 2022-05-15 04:44 | NUR ---
SHIFT SUMMARY A/O 2-3, RESTLESS T/O SHIFT. SBA, CONTINUES TO BE IMPULSIVE, AT BEDSIDE T/O NIGHT. IV ABX AND ACYCLOVIR GIVEN. DENIES PAIN OR SOB. VSS, NO ACUTE CHANGES AT THIS TIME. BED IN LOWEST POSITION WITH CALL LIGHT IN REACH. WILL CONTINUE TO MONITOR AND REPORT TO ONCOMING RN.
[2022-05-15 05:06] LABS: International Normalized Ratio 2.58; Prothrombin Time Results 25.5 Sec (9.7-11.5)
--- NOTE | 2022-05-15 11:35 | NUR ---
Spiritual Care Attempted. Pt. is resting on his side. Spouse is present. Nursing care was working with Pt. This it compliance analyst agreed with Spouse that he would return later.
--- NOTE | 2022-05-15 13:54 | NUR ---
Spiritual Care Visit. Pt. is awake. Spouse is present and welcomes my visit. Pts. verbal skills are improved though displays evidence of confusion. Re-establish rapport with the spouse. Spouse displays evidnece of being very encouraged with Pts. progress. Pt. needs to use the commode so this building manager is excused. Spouse believes the plan is to transition Pt. to the hospital in [place] on Friday. Will monitor pt. through the weekend.
--- NOTE | 2022-05-15 17:36 | NUR ---
SHIFT SUMMARY PT STILL SUFFERS FROM APHASIA BUT HAS HAD MORE MOMENTS SENSICAL SPEACH. REPORTS THAT PT HAS BEEN ABLE TO NAME PICTURES SHOWN, SUCH THEIR HOME, AND WAS ABLE TO PLAY A FULL GAME OF INXPO. PT IS ABLE TO AMBULATE TO THE BATHROOM BUT IS IN ROOM TO ASSIST. STATES THAT PT HAD ONE EPISODE OF DIARRHEA THIS MORNING. PT HAS BEEN PLEASANT AND ALERT AND APPEARS TO UNDERSTAND SPEACH. WILL CONTINUE TO MONITOR.
[2022-05-16 05:02] LABS: BASOPHILS ABSOLUTE AUTO 0.07 K/mm3 (0.00-0.23); BASOPHILS PERCENT AUTO 1 % (0-2); EOSINOPHILS ABSOLUTE AUTO 0.16 K/mm3 (0.00-0.68); EOSINOPHILS PERCENT AUTO 2 % (0-6); Hematocrit 32.3 % (37.0-53.0); Hemoglobin 10.9 g/dL (13.5-17.5); IMMATURE GRAN ABSOLUTE AUTO 0.07 K/mm3 (0.00-0.10); IMMATURE GRAN PERCENT AUTO 1 % (0-1); LYMPHOCYTES ABSOLUTE AUTO 2.56 K/mm3 (0.84-5.20); LYMPHOCYTES PERCENT AUTO 25 % (21-46); MONOCYTES ABSOLUTE AUTO 0.85 K/mm3 (0.16-1.47); MONOCYTES PERCENT AUTO 8 % (4-13); Mean Corpuscular HGB 30.1 pg (26.0-34.0); Mean Corpuscular HGB Conc 33.7 g/dL (31.5-36.5); Mean Corpuscular Volume 89 fL (80-100); Mean Platelet Volume 9.5 fL (9.1-12.4); NEUTROPHILS PERCENT AUTO 64 % (41-73); Platelet Count 279 K/mm3 (150-400); RDW Coefficient Variation 14.4 % (11.7-14.2); RDW Standard Deviation 45.4 fL (35.1-46.3); Red Blood Cell Count 3.62 M/mm3 (4.30-5.90); White Blood Cell Count 10.41 K/mm3 (4.00-11.30)
[2022-05-16 05:16] LABS: International Normalized Ratio 2.31
--- NOTE | 2022-05-16 06:00 | NUR ---
DIRECTOR SURFACE TRANSPORTATION SUMMARY ADMITTED FOR ENCEPHALOPATHY/CVA. THE PT IS FULL CODE. PLAN FOR TRANSFER TO SWING BED IN [place] FOR MORE ACUTE REHAB, THIS IS WHERE HE AND HIS LIVE. THE PATIENT HAS HAD IMPROVEMENT IN SPEECH AND MEMORY ACCORDING TO HIS AT BEDSIDE, BUT THE PATIENT IS STILL UNABLE TO HOLD A COHERENT CONVERSATION AND ANSWER QUESTIONS CORRECTLY. STEADY GAIT AND HAS BEEN INDEPENDENT WITH IN THE ROOM. VERY IMPULSIVE. DOES NOT USE CALL LIGHT. NO NOTABLE WEAKNESS.
[2022-05-16 06:04] LABS: Bun/Creatinine Ratio 11.9 (12.0-20.0); Calcium, Blood 8.1 mg/dL (8.5-10.1); Creatinine, Blood 0.84 mg/dL (0.60-1.20); Potassium, Blood 3.6 mmol/L (3.5-5.5)
[2022-05-16 13:10] LABS: ANTI-HU ANTIBODIES* <1:10 titer (.); ANTI-RI ANTIBODIES* <1:10 titer (.); ANTI-YO ANTIBODIES* <1:10 titer (.)
[2022-05-17 04:49] LABS: Hematocrit 33.6 % (37.0-53.0); Hemoglobin 11.3 g/dL (13.5-17.5)
[2022-05-17 05:05] LABS: International Normalized Ratio 2.22; Prothrombin Time Results 22.1 Sec (9.7-11.5)
--- NOTE | 2022-05-17 08:05 | NUR ---
PT OVERNIGHT WITH NO ACUTE CHANGES. PER REPORT PT SPEECH AND OVERALL IMPROVING. STATES HE ASKED TO PLAY CARDS WHICH IS SOMETHING HE TYPICALLY DOES. PT INDEPENDENT IN ROOM WITH STEADY GAIT. PT AT BEDSIDE WITH PT AND WHEN LEAVES HE IS PLACED ON BED ALARM. PT ALERT TO SELF AND PLACE. PT MINGO TO DO BETTER WHEN THINGS ARE WRITTEN DOWN FOR HIM. PT WOULD LIKE TO SPEAK WITH MD TODAY. SHE IS REQUESTING THIS HAPPEN YESTERDAY MD ROUNDED WHEN PT WAS NOT IN ROOM AND WAS NOT MINGO TO SPEAK WITH MD. ENDORSED TO ONCOMING RN.
--- NOTE | 2022-05-17 10:28 | NUR ---
CALLED DR SANTAMARIA- DR TROTTER ON THE PT WHILE THE SPOUSE WAS OUT OF THE ROOM FOR A FEW MINUTES TO GET HER SUPPLIES, SPOUSE REQUESTED TO SPEAK TO THE DR. DR SANTAMARIA IS AWARE AND WILL RETURN TO THE ROOM TO SPEAK TO HER A LITTLE LATER TODAY.
--- NOTE | 2022-05-17 11:15 | NUR ---
SHIFT SUMMARY FOR 05/16/22 DAY SHIFT. IN PT ROOM MOST OF SHIFT. AT THE BEGINNING OF SHIFT PT WAS NOT ABLE TO ANSWER AXO QUESTIONS. BUT LATER N THE SHIFT HE WAS SPEAKING WITH HIS AND ABLE TO ANSWER QUESTIONS WHEN SHE ASKED. 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 HWEVER, LOOKING BACK THROUGH PT NOTES STAFF WAS UNABLE TO FIND A HSV TEST OR ANY OTHER TEST PROVING HIS ENCEPH WERE RELATED TO HSV. BEGAN LOOKING THROUGH HIS PATIENT PORTAL AND WAS VERY CONFUSED BY THE LACK OF TESTING TO SUPPORT HIS MENTAL STATUS CHANGE. TIS INFORMATION WAS APSSED ONTO THE HOSPITALIST FOR THE DAY WELL INDICATED TO CHARGE AND OTHER STAFF. PTS EXPRESSED FRUSTRATION ABOUT HER CONCERNS BEING BRUSHED OFF BY OTHER STAFF. THIS RN LISTENED TO CONCERNS AND BROUGHT THEM FORTH TO THE APPROPRIATE LEADERSHIP. BED IN LOWEST POSITION, CALL LIGHT IN [facility], AND IN ROOM.
--- NOTE | 2022-05-17 18:43 | NUR ---
SHIFT SUMMARY PTN CONFUSED, A&OX1, CAN ONLY STATE NAME AND BIRTHDATE WITH CUES WRITTEN ON PAPER. PRESENT MOST OF DAY. WATCHES TELEVISION NEWS AND POINTS TO IT, SEEMS INTERESTED IN IT. DID RECOGNIZE AND RESPOND TO FAMILY. COOPERATIVE. FULL CODE. ACTIVITY INDEPENDENT, IMPULSIVE WHEN NEEDS TO GET UP TO TOILET. SPEECH THERAPY WORKED WITH PATIENT AND NOTES IMPROVEMENT. FAMILY NOTE IMPROVEMENT IN MENTATION. DIET REGULAR. IV R FOREARM. ANTI-VIRAL IV. CONTINUE TO MONITOR.
[2022-05-18 05:43] LABS: International Normalized Ratio 1.76; Prothrombin Time Results 17.8 Sec (9.7-11.5)
--- NOTE | 2022-05-18 18:29 | NUR ---
SHIFT SUMMARY PTN CONTINUES TO HAVE CONFUSION, APHASIA, BUT SEEMS TO COMPREHEND MORE OF CONVERSATION, RESPONSES SIMPLE. EFFECTIVELY. A&O X1. PRESENT THIS SHIFT. ACTIVITY FOR SAFETY WITH ASSIST. HELPED TO TOILET AND TO SHOWER. CONTINUE TO MONITOR.
[2022-05-19 04:49] LABS: International Normalized Ratio 1.7; Prothrombin Time Results 17.2 Sec (9.7-11.5)
--- NOTE | 2022-05-19 08:00 | NUR ---
PT IS PLEASANT, CALM, QUIET. HE HAS BEEN RESTING ON HIS SIDE IN BED. DENIES PAIN. AT BEDSIDE. IS ABLE TO TELL ME SOME BASIC ANSWERS. EXPRESSIVE APHASIA. UNABLE TO CLEARLY TELL ME SOME ANSWERS. STATES IMPROVED. H/R REG, NO MURMUR NOTED. NO TELE. NO EDEMA NOTED. LUNGS CLEAR, RESP EASY, UNLABORED. ON R.A. BT X4 LAST BM 2-3-4 DAYS. CHART CHANGER. VOIDS INDEPENDANT TO BATHROOM. BED IN LOW POSITION, CALL LITE IN REACH, CALLS APPROP.
--- NOTE | 2022-05-19 18:19 | NUR ---
PT CONTINUES TO BE PLEASANT, TALKING SYNICAL. NO C/O PAIN. NEW POWERGLIDE PLACED TODAY. AT BEDSIDE T/O DAY. THEY FEEL GOOD TO GO TO [place] TOMORROW. PLANNING FOR D/C IN AM. DID WALK IN HALLS TODAY. NO NEW CONCERNS NOTED TODAY. BED IN LOW POSITION, CALLLITE IN REACH, CALLS APPROP
[2022-05-20 07:04] LABS: International Normalized Ratio 2.39; Prothrombin Time Results 23.7 Sec (9.7-11.5)
--- NOTE | 2022-05-20 09:00 | NUR ---
PT PLEASANT COOP FOLLOWING INSTRUCT. KNOWS NAME AND , RECOGNIZES , BUT ONLY OCCATIONALLY CAN SAY HER NAME. DENIES PAIN AT THIS TIME. AT BEDSIDE. STILL EXPRESSIVE APHASIA. CONTINUES TO SPEAK IN CYNICAL AND SOME MIXED WORDS. H/R REG, NO MURMUR NOTED. NO TELE. LUNGS CLEAR, RESP EASY, UNLABORED. ON R.A. BT X4 LAST BM YEST. VOIDS SBA TO BATHROOM. BED IN LOW POSITION, CALL LITE IN REACH, BED ALARM ON FOR SAFETY. PENDING DISCHARGE AT 10:30
[2022-05-20 09:24] LABS: Influenza A, PCR NEGATIVE (NEGATIVE); Influenza B, PCR NEGATIVE (NEGATIVE); Resp Syncytial Virus, PCR NEGATIVE (NEGATIVE); SARS-Cov-2 (COVID-19) PCR, MMC NEGATIVE (NEGATIVE)
[2022-05-20] MEDS ORDERED: [UNRECOGNIZED DRUG - OTHER] IV (10:20)
[2022-05-20] MEDS ORDERED: MIRALAX17 GM PO (10:22)
[2022-05-20] MEDS ORDERED: DOCU100 PO (10:22)
[2022-05-20] MEDS ORDERED: RISP.5 PO (10:22)
[2022-05-20] MEDS ORDERED: BISA10S PR (10:23)
[2022-05-20] MEDS ORDERED: ACET325 PO (10:23)
--- NOTE | 2022-05-20 11:12 | NUR ---
DISCHARGE REVIEWED WITH PT AND SPOUSE. SHE IS TRANSPORTING PT TO CARE FACILITY, PERIPHERAL IV REMOVED INTACT. POWERGLIDE REMAINS INTACT. NO TELE. THEY VERBALIZE UNDERSTANDING MEDS AND INST. PT WHEELED TO DOOR BY BOX LINING MACHINE FEEDER AT 1119
--- NOTE | 2022-05-20 14:36 | NUR ---
REPORT CALLED TO ONEIL BARBA
== END 2022-05-20 11:10 | DRG 97 ==
LOC: ER 10:31 → MEDS 10:32 → PCU 10:32 → MEDS 05-04 09:58 → ICUW 05-04 14:38 → MEDS 05-04 14:38 → ICUW 05-05 08:25 → MEDS 05-13 15:27 → ENPENDDIS 05-20 09:17 → MEDS 05-20 11:10
PROVIDERS: Emergency Medicine; Family Medicine; Internal Medicine; ADMIT Internal Medicine
PROC: 009U3ZX Drainage of Spinal Canal, Percutaneous Approach, Diagnostic (ICD-10-PCS; principal; 2022-05-04)
PROC: XW033H6 Introduction of Other New Technology Monoclonal Antibody into Peripheral Vein, Percutaneous Approach, New Technology Group 6 (ICD-10-PCS; 2022-05-04)
PROC: 05HY33Z Insertion of Infusion Device into Upper Vein, Percutaneous Approach (ICD-10-PCS; 2022-05-04)
DX: B00.4 Herpesviral encephalitis (principal); I61.9 Nontraumatic intracerebral hemorrhage, unspecified; D68.51 Activated protein C resistance; Z20.822 Contact with and (suspected) exposure to COVID-19; Z23 Encounter for immunization; G92.8 Other toxic encephalopathy; E87.6 Hypokalemia; E87.5 Hyperkalemia; D64.9 Anemia, unspecified; F17.210 Nicotine dependence, cigarettes, uncomplicated; Z86.16 Personal history of COVID-19; Z86.73 Personal history of transient ischemic attack (TIA), and cerebral infarction without residual deficits; Z79.01 Long term (current) use of anticoagulants; Z79.82 Long term (current) use of aspirin
CPT/HCPCS: 0241U; 36415; 51702; 70450; 70496; 70498; 70551; 70553; 71045; 80048; 80053; 80061; 80069; 80202; 81001; 82565; 82945; 83036; 83516; 83605; 83615; 83735; 83880; 83916; 84145; 84439; 84443; 84481; 84484; 85014; 85018; 85025; 85610; 85651; 85730; 86140; 86160; 86225; 86235; 86255; 86403; 86592; 86618; 86713; 86777; 86788; 86789; 87040; 87070; 87205; 87252; 87254; 87449; 87483; 89051; 92507; 92523; 93005; 93010; 93306; 94660; 94762; 95819; 96372; 96374-59; 96375-59; 97112; 97116; 97129; 97162; 97165; 97168; 97530; 97535; 99285-25; A9270; A9579; C1751; G0378; J0133; J0290; J0360; J0696; J1200; J1650; J1953; J2060; J2250; J2405; J2543; J2765; J3010; J3370; J3430; J3480; J7030; J7040; J7050; J7060; J7120; M0222; Q9967